=== PATIENT | male | born 1970 | race Hispanic/Latino ===

== ENCOUNTER 2017-06-25 09:45 | Outpatient (CLI) | payer BC ==
[2017-06-25 10:51] LABS: Bilirubin Negative (Negative); Blood, Urine Small (Negative); Clarity CLEAR (Clear); Glucose, Urine (Dipstick) Negative (Negative); Leukocyte Negative (Negative); Nitrite Negative (Negative); Protein, Urine (Dipstick) Negative (Neg-Trace)
[2017-06-25 10:52] LABS: Hemoglobin 14.4 g/dL (14.0-18.0); Mean Corpuscular HGB CONC 33.6 g/dL (32.0-36.0); Mean Corpuscular Hemoglobin 31.5 pg (27.0-31.0); Mean Corpuscular Volume 93.7 fl (80.0-94.0); Mean Platelet Volume 7.2 fL (7.4-10.4); Platelet Count 253 thou/uL (130-400); RBC Distribution Width 11.6 % (11.5-14.5); Red Blood Cell (RBC) Count 4.57 mill/uL (4.70-6.10); White Blood Cell (WBC) Count 7.1 thou/uL (4.8-10.8)
[2017-06-25 10:55] LABS: Bacteria/HPF None Seen HPF (None Seen); Hyaline Casts/LPF 0-3 HYALINE CAST LPF (0-3 Hyaline); Squamous Epithelial None Seen HPF (0-3); WBC/HPF 0-3 HPF (0-3)
[2017-06-25 10:58] LABS: PTT 28.1 SEC (22.9-36.1); Prothrombin Time 13.6 SEC (12.0-14.7)
[2017-06-25 11:14] LABS: Anion Gap 13 mmol/L (10-20); BUN (Urea Nitrogen) 15 mg/dL (8.9-20.6); Calc. Creatinine Clearance 0 mL/min (70-130); Calcium 9.6 mg/dL (7.8-10.44); Carbon Dioxide 25 mmol/L (22-29); Chloride 105 mmol/L (98-107); Estimated GFR-MDRD 87; Glucose 103 mg/dL (70-105); Potassium 4.4 mmol/L (3.5-5.1); Sodium 139 mmol/L (136-145)
== END 2017-06-25 09:46 | disposition home or self-care (01) ==
LOC: LABBT 09:45
PROVIDERS: ATTEND Urology
DX: Z01.812 Encounter for preprocedural laboratory examination (principal); R97.20 Elevated prostate specific antigen [PSA]
CPT/HCPCS: 80048; 81001; 85027; 85610; 85730; 87081; 87086; 93005; 93010

== ENCOUNTER 2017-07-14 06:40 | Day surgery (SDC) | payer BC ==
[2017-06-25 10:04] VITALS: BMI 35.4
[2017-07-14] MEDS ORDERED: Levofloxacin 500 mg/D5W 100 ml Premix Bag ONE (07:55)
[2017-07-14] MEDS ORDERED: cefTRIAXone\\ROCEPHIN 2 GM, Admixture Fee 1 EACH in Sodium Chloride 0.9% 100 ML IVPB SCH (08:15)
[2017-07-14] MEDS ORDERED: Midazolam HCl 2 mg/2 ml Vial ONE (08:46)
[2017-07-14] MEDS ORDERED: Fentanyl 100 MCG/2 ML VIAL ONE (09:24)
[2017-07-14] MEDS ORDERED: Phenazopyridine HCl 97.5 MG TABLET ONE (10:25)
--- NOTE | 2017-07-14 10:33 | OP ---
DATE OF PROCEDURE: 07/14/2017 PREOPERATIVE DIAGNOSES: 1. A 47-year-old male with elevated PSA of 4.4, unremarkable SALLY. 2. Newly appreciated microscopic hematuria. POSTOPERATIVE DIAGNOSES: 1. A 47-year-old male with elevated PSA of 4.4, unremarkable SALLY. 2. Newly appreciated microscopic hematuria. PROCEDURE: 1. Flexible cystoscopy. 2. Transrectal ultrasound biopsy, 12 core biopsy of the prostate. SURGEON: Milagro Elias D.O. ANESTHESIA: LMA. COMPLICATIONS: None apparent. DISPOSITION: Recovery room in stable condition. INDICATIONS FOR PROCEDURE AND HISTORY: Mr. Shea is a 47-year-old male, Serbian speaking, who presented with his for evaluation of elevated PSA of 4.4. Digital rectal exam is grossly unremarkable. Family history of prostate cancer in which his father underwent a radical prostatectomy at age 65. The patient has history of chronic alcohol use/abuse, anxiety, and requested a biopsy under anesthesia. As pre-biopsy labs demonstrated newly appreciated microscopic hematuria, the patient was counseled this morning regarding concomitant flexible cystoscopy. Advised regarding CT for complete hematuria workup at a later date. Risks and complications including, but not limited to, bleeding, pain, infection, urosepsis, vasovagal episode was reviewed with the patient in detail. We discussed options for local versus exam under anesthesia and he desired to proceed with exam under anesthesia due to significant anxiety. DESCRIPTION OF THE PROCEDURE: After an informed consent is signed, the patient is taken to the operating room, placed in a supine position with the genital area prepped and draped in the usual surgical sterile fashion. Bilateral JAY hose, SCDs, and broad-spectrum antibiotics were provided. A flexible cystoscope was passed which demonstrated unremarkable anterior and posterior urethra. Prostatic urethra demonstrated coapting lateral lobes with no significant obstructive component. No evidence of urethral stricture was found. Upon entering the bladder, there was clear urine. The ureteral orifices bilaterally are identified in normal orthotopic position approximately 6 mm from the bladder neck. There is no gross evidence of intravesical median lobe. Clear efflux of urine was noted. The bladder mucosa was inspected which demonstrated no evidence of bladder tumor, stone, trabeculation, or diverticulum. Bladder wash for cytology was obtained. At this time, the patient was then placed in left lateral decubitus position with all pressure points padded and protected. Transrectal ultrasound probe was placed with a condom catheter, measurement of the prostate was obtained demonstrating a urethral length of 4.6, width of 4.5, height of 3.0 cm, volume calculated to be 33.6 grams. Twelve core needle biopsy was performed in a systematic manner. The probe was then subsequently removed. He tolerated the procedure well and transported to the recovery room in stable condition. He is discharged with ciprofloxacin for 5 days, Colace p.r.n. He will follow up with me next Wednesday to review pathology. ANN MARIE
== END 2017-07-14 12:19 | disposition home or self-care (01) ==
LOC: SDC 06:40
PROVIDERS: ATTEND Urology
PROC: BV49ZZZ Ultrasonography of Prostate and Seminal Vesicles (ICD-10-PCS; principal; 2017-07-14)
PROC: 0TJB8ZZ Inspection of Bladder, Via Natural or Artificial Opening Endoscopic (ICD-10-PCS; principal; 2017-07-14)
PROC: 0VB07ZX Excision of Prostate, Via Natural or Artificial Opening, Diagnostic (ICD-10-PCS; principal; 2017-07-14)
DX: N42.89 Other specified disorders of prostate (principal); R97.20 Elevated prostate specific antigen [PSA]; E11.9 Type 2 diabetes mellitus without complications; F32.9 Major depressive disorder, single episode, unspecified; I10 Essential (primary) hypertension; E78.5 Hyperlipidemia, unspecified; H40.9 Unspecified glaucoma; M51.26 Other intervertebral disc displacement, lumbar region; R20.2 Paresthesia of skin; G47.33 Obstructive sleep apnea (adult) (pediatric); E73.9 Lactose intolerance, unspecified; S83.207A Unspecified tear of unspecified meniscus, current injury, left knee, initial encounter; F10.10 Alcohol abuse, uncomplicated; F17.290 Nicotine dependence, other tobacco product, uncomplicated; Z79.82 Long term (current) use of aspirin; Z79.84 Long term (current) use of oral hypoglycemic drugs; Z79.899 Other long term (current) drug therapy; Z99.89 Dependence on other enabling machines and devices; Z98.818 Other dental procedure status; Z80.42 Family history of malignant neoplasm of prostate
CPT/HCPCS: 88112; 88305; J0696; J1956; J2250; J3010; J7050

== ENCOUNTER 2017-08-11 08:25 | Outpatient (CLI) | payer BC ==
[2017-08-11] MEDS ORDERED: Iopamidol 370 76% 100 ML VIAL ONE (09:31)
--- NOTE | 2017-08-11 11:12 | CT ---
ABDOMEN CT WITH AND WITHOUT CONTRAST PELVIC CT WITH AND WITHOUT CONTRAST: History: Microhematuria, elevated PSA one month ago. Comparison: None. Technique: Abdomen and pelvic CT are performed with and without contrast. Coronal reformatted images are submitted for interpretation. FINDINGS: ABDOMEN CT: Chronic changes lung bases. Normal heart size. No pericardial effusion. Visualized aorta is of normal caliber. Intra and extrahepatic portal vein is patent. Diffuse hypoattenuation of the liver due to hepatic ольга atosis. Spleen, pancreas, and adrenal glands have appropriate enhancement. No mesenteric mass, lympha denopathy, free air or free fluid. No gastrohepatic, retrocrural or periportal lymphadenopathy. Limited evaluation of the alimentary canal due to lack of oral contrast. Gastric mucosa, duodenum and multiple normal caliber small bowel loops are noted. Normal ileocecal junction. Normal caliber appen emmett. Gas and fecal material in a nondistended, nondilated colon. Bilaterally, no hydronephrosis, lymphadenopathy or significant perinephric fat stranding. Bilaterally , ureters have a normal caliber. No hydroureter, fat stranding, or ureterolithiasis. Symmetric enhanc ement of the kidneys. Symmetric excretion into normal appearing intra and extrarenal collecting syste m. There is adequate contrast opacification without filling defect. PELVIC CT: No mass, lymphadenopathy, free air, or free fluid. There is contrast in the dependent portion of the urinary bladder. Bladder mucosa is grossly unremarkable. Mild prominence of the bladder mucosa likely due to inadequate distention. No lytic or blastic lesions in the osseous structures. IMPRESSION: 1. No evidence of obstructive uropathy. 2. Hepatic steatosis. POS: [facility]
== END 2017-08-11 08:26 | disposition home or self-care (01) ==
LOC: CT 08:25
PROVIDERS: ATTEND Urology
DX: R31.29 Other microscopic hematuria (principal); K76.0 Fatty (change of) liver, not elsewhere classified
CPT/HCPCS: 74178

== ENCOUNTER 2018-12-14 13:09 | Outpatient (CLI) | payer BC ==
--- NOTE | 2018-12-14 15:25 | CT ---
ABDOMEN AND PELVIC CT SCAN WITH AND WITHOUT IV CONTRAST: HISTORY: Hematuria. COMPARISON: 08/11/2017. FINDINGS: The lung bases are clear. Prominent fatty changes in the liver with numerous areas of fatty sparing. Pancreas, spleen, gallbladder, and adrenal glands are unremarkable. No renal calculus or evidence for acute obstruction. No solid or cystic renal mass. Normal-appearing appendix. Normal-appeari ng urinary bladder. Bilateral fat-containing inguinal hernias larger on the left side as well as a f at-containing umbilical hernia. No abscess or adenopathy or abnormal fluid collection within the abd omen or pelvis. No evidence for bowel obstruction. IMPRESSION: Fatty changes in the liver with some areas of fatty sparring. Bilateral inguinal and umbilical fat-c ontaining hernias. No evidence for renal calculus or obstruction or solid or cystic renal mass or other significant acute abnormality. POS: [facility]
== END 2018-12-14 13:10 | disposition home or self-care (01) ==
LOC: BICCT 13:09
PROVIDERS: ATTEND Urology
DX: R31.29 Other microscopic hematuria (principal); R35.0 Frequency of micturition; Z80.42 Family history of malignant neoplasm of prostate; R97.20 Elevated prostate specific antigen [PSA]; K42.9 Umbilical hernia without obstruction or gangrene; K40.90 Unilateral inguinal hernia, without obstruction or gangrene, not specified as recurrent
CPT/HCPCS: 74178

== ENCOUNTER 2019-01-11 14:18 | Outpatient (CLI) | payer BC ==
[2019-01-11 17:30] LABS: Hemoglobin 14.2 g/dL (14.0-18.0); Mean Corpuscular HGB CONC 34.2 g/dL (32.0-36.0); Mean Corpuscular Hemoglobin 31.4 pg (27.0-31.0); Mean Corpuscular Volume 91.8 fL (78.0-98.0); Mean Platelet Volume 7.4 fL (7.4-10.4); Platelet Count 230 thou/uL (130-400); RBC Distribution Width 11.7 % (11.5-14.5); Red Blood Cell (RBC) Count 4.51 mill/uL (4.70-6.10); White Blood Cell (WBC) Count 6.7 thou/uL (4.8-10.8)
[2019-01-11 17:33] LABS: Bacteria/HPF None Seen HPF (None Seen); Bilirubin Negative (Negative); Blood, Urine Negative (Negative); Clarity Clear (Clear); Glucose, Urine (Dipstick) Normal (Negative); Leukocyte Negative Leu/uL (Negative); Nitrite Negative (Negative); Protein, Urine (Dipstick) Negative (Neg-Trace); RBC/HPF 0-3 HPF (0-3); Squamous Epithelial 0-3 HPF (0-3); Urobilinogen Normal mg/dL (Less than 2); WBC/HPF 0-3 HPF (0-3)
[2019-01-11 17:36] LABS: PTT 25.6 SEC (22.9-36.1); Prothrombin Time 12.8 SEC (12.0-14.7)
[2019-01-11 17:56] LABS: Anion Gap 14 mmol/L (10-20); BUN (Urea Nitrogen) 20 mg/dL (8.9-20.6); Calc. Creatinine Clearance 0 mL/min (70-130); Calcium 10.1 mg/dL (7.8-10.44); Carbon Dioxide 22 mmol/L (22-29); Chloride 107 mmol/L (98-107); Estimated GFR-MDRD 83; Glucose 120 mg/dL (70-105); Potassium 4.2 mmol/L (3.5-5.1); Sodium 139 mmol/L (136-145)
--- NOTE | 2019-01-11 18:08 | RAD ---
EXAM: CHEST TWO VIEWS: 01/11/19 HISTORY: Preoperative evaluation. Heart size is within normal limits. The lungs are clear. No pneumonia, edema, pleural effusion or oth er acute process. IMPRESSION: No acute intrathoracic disease. POS: [facility]
== END 2019-01-11 14:19 | disposition home or self-care (01) ==
LOC: LABBT 14:18
PROVIDERS: ATTEND Urology
DX: Z01.818 Encounter for other preprocedural examination (principal); R97.20 Elevated prostate specific antigen [PSA]; E11.9 Type 2 diabetes mellitus without complications; F10.10 Alcohol abuse, uncomplicated; R31.29 Other microscopic hematuria; R80.0 Isolated proteinuria; R35.0 Frequency of micturition; K42.9 Umbilical hernia without obstruction or gangrene
CPT/HCPCS: 71046; 80048; 81001; 85027; 85610; 85730; 87086; 93005; 93010

== ENCOUNTER 2019-01-25 06:12 | Day surgery (SDC) | payer BC ==
[2019-01-24 11:24] VITALS: BMI 35.4
[2019-01-25] MEDS ORDERED: Levofloxacin 500 mg/D5W 100 ml Premix Bag ONE (07:07)
[2019-01-25] MEDS ORDERED: Sodium Chloride 0.9% 100 ML ONE (07:07)
[2019-01-25] MEDS ORDERED: cefTRIAXone\\ROCEPHIN 2 GM VIAL ONE (07:07)
[2019-01-25] MEDS ORDERED: Fentanyl 100 MCG/2 ML VIAL ONE (08:04)
--- NOTE | 2019-01-25 10:35 | OP ---
DATE OF PROCEDURE: 01/25/2019 PREOPERATIVE DIAGNOSES: A 48-year-old male with family history of prostate cancer, elevated PSA, status post prostate biopsy negative for malignancy. POSTOPERATIVE DIAGNOSES: A 48-year-old male with family history of prostate cancer, elevated PSA, status post prostate biopsy negative for malignancy. PROCEDURES PERFORMED: 1. Transrectal ultrasound. 2. Volume study. 3. Extended core prostate biopsy. 4. MRI fusion region of interest biopsy. ANESTHESIA: TIVA. COMPLICATIONS: None apparent. DISPOSITION: To recovery room in stable condition. SPECIMENS: Extended core prostate biopsy x18, 4 biopsies obtained from region of interest. INDICATIONS FOR PROCEDURE AND HISTORY: Mr. Shea is a 48-year-old male with family history of prostate cancer. He presented with PSA of 4.44, underwent prostate biopsy, negative for malignancy. On followup exam, SALLY was unremarkable; however, increased PSA to 6.9. MRI was obtained, which demonstrated no obvious enhancing lesion. There was a nonspecific small focus of decreased T2 signal without restricted diffusion in the peripheral zone. Differential diagnosis of prostatitis or fibrosis in this region. No obvious enhancing lesion was seen. He presents today for extended core prostate biopsy and fusion biopsy. Risks and complications and indications reviewed including, but not limited to, bleeding, pain, infection, injury to adjacent organs, urosepsis, prolonged bleeding requiring secondary procedure was reviewed with him in detail and all questions answered to his satisfaction. He desired to proceed. DESCRIPTION OF PROCEDURE: After an informed consent was signed, the patient was taken to the operating room, placed in supine position. TIVA anesthesia was administered. Bilateral JAY hose, bilateral SCDs, and broad-spectrum antibiotics were provided. At this time, a transrectal ultrasound probe was placed. A digital rectal exam prior to placing the probe demonstrated unremarkable SALLY. Prostate volume study was performed in a standard fashion, measuring length at 4.9, width at 4.5, height of 4.0 for a volume of 44 g. At this time, we then performed an MRI fusion of the area of interest. With this targeted approach, we obtained 4 specimens from this region uneventfully. Then, we subsequently proceeded to perform our 12 standard core prostate biopsy and added an extended core periurethral region of each region. He tolerated the procedure well and transported to the recovery room in stable condition. Total of 18 prostate biopsy was performed and 4 of the region of interest was performed in total. Indwelling Watson catheter was placed periprocedural, pink tinged urine was noted at the end of the procedure and subsequently removed. He will undergo voiding trial prior to discharge. He was discharged with ciprofloxacin for course of 7 days, I did provide him with Flomax #30 given extended core prostate biopsy. As a baseline, he has no significant obstructive urinary symptoms; however, we will provide periprocedural Flomax. Yolis mack.r.n. Appointment with me on 02/14 at 2:15. No aspirin or ibuprofen products advised for a minimum of 7-10 days. Job ID: [id number]
[2019-01-25] MEDS ORDERED: Phenazopyridine HCl 97.5 MG TABLET ONE (11:11)
== END 2019-01-25 12:17 | disposition home or self-care (01) ==
LOC: SDC 06:12
PROVIDERS: ATTEND Urology
PROC: 0VB03ZX Excision of Prostate, Percutaneous Approach, Diagnostic (ICD-10-PCS; principal; 2019-01-25)
DX: R97.20 Elevated prostate specific antigen [PSA] (principal); I10 Essential (primary) hypertension; E11.9 Type 2 diabetes mellitus without complications; F17.210 Nicotine dependence, cigarettes, uncomplicated; F41.8 Other specified anxiety disorders; F32.9 Major depressive disorder, single episode, unspecified; G47.33 Obstructive sleep apnea (adult) (pediatric); Z79.82 Long term (current) use of aspirin; Z79.84 Long term (current) use of oral hypoglycemic drugs; Z79.899 Other long term (current) drug therapy; Z99.89 Dependence on other enabling machines and devices
CPT/HCPCS: 88305; J0696; J1956; J3010; J3490

== ENCOUNTER 2019-03-16 16:30 | Inpatient (IN) | payer BC ==
[2019-03-21 15:14] LABS: Hemoglobin 13.2 g/dL (14.0-18.0); Mean Corpuscular HGB CONC 34.4 g/dL (32.0-36.0); Mean Corpuscular Hemoglobin 31.7 pg (27.0-31.0); Mean Corpuscular Volume 92.1 fL (78.0-98.0); Mean Platelet Volume 7.4 fL (7.4-10.4); Platelet Count 219 thou/uL (130-400); RBC Distribution Width 11.5 % (11.5-14.5); Red Blood Cell (RBC) Count 4.17 mill/uL (4.70-6.10); White Blood Cell (WBC) Count 6.1 thou/uL (4.8-10.8)
[2019-03-21 15:21] LABS: PTT 25.9 SEC (22.9-36.1); Prothrombin Time 13.2 SEC (12.0-14.7)
[2019-03-21 15:34] LABS: ALT (SGPT) 30 U/L (8-55); AST (SGOT) 22 U/L (5-34); Albumin 4.7 g/dL (3.5-5.0); Alkaline Phosphatase 44 U/L (40-110); Anion Gap 14 mmol/L (10-20); BUN (Urea Nitrogen) 19 mg/dL (8.9-20.6); Bilirubin, Total 0.5 mg/dL (0.2-1.2); Calc. Creatinine Clearance 0 mL/min (70-130); Carbon Dioxide 23 mmol/L (22-29); Chloride 105 mmol/L (98-107); Estimated GFR-MDRD 81; Globulin 2.4 g/dL (2.4-3.5); Glucose 138 mg/dL (70-105); Potassium 4.3 mmol/L (3.5-5.1); Protein, Total 7.1 g/dL (6.0-8.3); Sodium 138 mmol/L (136-145)
[2019-03-27] MEDS ORDERED: Levofloxacin 500 mg/D5W 100 ml Premix Bag ONE (06:24)
[2019-03-27] MEDS ORDERED: cefOXitin Sodium/Dextrose,Iso 1 GM in Premix Bag 50 BAG IVPB SCH (06:30)
[2019-03-27] MEDS ORDERED: Lidocaine 1% w/Epinephrine 1:100K 20 ML VIAL ONE (06:53)
[2019-03-27] MEDS ORDERED: Bupivacaine HCl 0.25%/Epi 0.0005/PF 10 ML VIAL FS ONE (06:53)
[2019-03-27] MEDS ORDERED: Dexamethasone 4 mg/ml Vial ONE (07:01)
[2019-03-27] MEDS ORDERED: Midazolam HCl 2 mg/2 ml Vial ONE (07:01)
[2019-03-27] MEDS ORDERED: Fentanyl 100 MCG/2 ML VIAL ONE ×4 (07:01→15:35)
[2019-03-27] MEDS ORDERED: cefOXitin 2 GM VIAL ONE ×2 (09:33→12:13)
[2019-03-27] MEDS ORDERED: Fentanyl 250 MCG/5 ML VIAL ONE (10:09)
[2019-03-27] MEDS ORDERED: Rocuronium Bromide 50 MG/5 ML VIAL ONE (12:10)
[2019-03-27] MEDS ORDERED: SUGAMMADEX SODIUM 200 MG/2 ML VIAL ONE (13:07)
[2019-03-27] MEDS ORDERED: Dextrose 5% in Water 1,000 ML IV PRN (14:02)
[2019-03-27] MEDS ORDERED: Dextrose 50% Abboject 50 ML SYRINGE SLOW IVP PRN (14:02)
[2019-03-27] MEDS ORDERED: Acetaminophen 500 MG TAB PO PRN (14:03)
[2019-03-27] MEDS ORDERED: Promethazine HCl 25 MG/ML VIAL IM PRN (14:03)
[2019-03-27] MEDS ORDERED: Ondansetron HCl/PF 4 MG/2 ML Vial IVP PRN (14:03)
[2019-03-27] MEDS ORDERED: diphenhydrAMINE 50 MG/ML VIAL IVP PRN (14:03)
[2019-03-27] MEDS ORDERED: Mag-Al 1200 mg/1200 mg/30 ML UDCUP PO PRN (14:03)
[2019-03-27] MEDS ORDERED: Promethazine HCl 25 MG/ML VIAL SLOW IVP PRN (14:03)
[2019-03-27] MEDS ORDERED: Acetaminophen 1,000 MG in Premix Bag 1 BAG IVPB SCH (14:15)
[2019-03-27 14:44] LABS: #Monocytes 0.6 thou/uL (0.11-0.59); #Neutrophils 10.5 thou/uL (1.40-6.50); %Basophils 0.1 % (0.0-1.0); %Eosinophils 0.2 % (0.0-10.0); %Lymphocytes 7.9 % (21.0-51.0); %Monocytes 4.7 % (0.0-10.0); %Neutrophils 87.2 % (42.0-75.0); Hemoglobin 13.6 g/dL (14.0-18.0); Mean Corpuscular HGB CONC 32.8 g/dL (32.0-36.0); Mean Corpuscular Hemoglobin 31.6 pg (27.0-31.0); Mean Corpuscular Volume 96.3 fL (78.0-98.0); Mean Platelet Volume 7.4 fL (7.4-10.4); Platelet Count 222 thou/uL (130-400); RBC Distribution Width 11.6 % (11.5-14.5); Red Blood Cell (RBC) Count 4.32 mill/uL (4.70-6.10)
[2019-03-27 15:05] LABS: Anion Gap 18 mmol/L (10-20); BUN (Urea Nitrogen) 18 mg/dL (8.9-20.6); Calc. Creatinine Clearance 101 mL/min (70-130); Calcium 8.4 mg/dL (7.8-10.44); Carbon Dioxide 19 mmol/L (22-29); Chloride 105 mmol/L (98-107); Estimated GFR-MDRD 53; Glucose 173 mg/dL (70-105); Potassium 5.9 mmol/L (3.5-5.1); Sodium 136 mmol/L (136-145)
[2019-03-27] MEDS ORDERED: Lactase 9,000 UNIT CHEWABLE TAB PO PRN (15:15)
[2019-03-27] MEDS ORDERED: hydrALAZINE 20 MG/ML VIAL SLOW IVP PRN ×2 (15:46)
[2019-03-27] MEDS ORDERED: Ondansetron PF 4 MG/2 ML Vial IVP PRN (15:46)
[2019-03-27] MEDS ORDERED: Rocuronium Bromide 10 MG/ML (10ML VIAL) ONE (15:54)
[2019-03-27] MEDS ORDERED: Bupivacaine HCl 0.5%/Epinephrine 1:200,000/PF 30 ml Vial ONE (15:54)
[2019-03-27] MEDS ORDERED: Vecuronium Bromide 20 MG VIAL ONE (15:54)
[2019-03-27] MEDS ORDERED: PHENYLEPHRINE-NS 100 MCG/ML 10 ML SYRINGE ONE (15:54)
[2019-03-27] MEDS ORDERED: Dexamethasone 20 MG/5 ML VIAL ONE (15:54)
[2019-03-27] MEDS ORDERED: Glycopyrrolate 0.2 MG/ML 5 ML SYRINGE ONE (15:54)
[2019-03-27] MEDS ORDERED: Ondansetron PF 4 MG/2 ML Vial ONE (15:54)
[2019-03-27] MEDS ORDERED: PROPOFOL 200 MG/20 ML VIAL ONE (15:54)
[2019-03-27 16:28] VITALS: BMI 35.4
[2019-03-27] MEDS: Insulin Regular 300 UNITS/3 ML VIAL SC PRN (17:00)
[2019-03-27] MEDS: cefOXitin 1.5 GM in Sodium Chloride 0.9% 100 ML IVPB SCH ×2 (17:00→23:43)
[2019-03-27] MEDS: Sodium Chloride 0.9% 1,000 ML IV SCH ×2 (17:01→22:27)
[2019-03-27] MEDS: HYDROcodone/Acetaminophen 10/325 mg Tablet PO PRN ×2 (18:12→22:25)
[2019-03-27] MEDS: Morphine 2 MG/ML SYRINGE SLOW IVP PRN (20:10)
[2019-03-27] MEDS: Docusate 100 MG CAP PO SCH (20:11)
--- NOTE | 2019-03-27 20:11 | OP ---
DATE OF PROCEDURE: 03/27/2019 PREOPERATIVE DIAGNOSIS: 1. Clinical T1c adenocarcinoma of the prostate, Bess score 3 + 3, 3 + 4. 2. Family history of prostate cancer. POSTOPERATIVE DIAGNOSIS: 1. Clinical T1c adenocarcinoma of the prostate, Bess score 3 + 3, 3 + 4. 2. Family history of prostate cancer. PROCEDURE PERFORMED: Robotic-assisted laparoscopic radical prostatectomy. PRODUCTION TESTER: Reji Stokes MD ANESTHESIA: General. COMPLICATIONS: None apparent. SPECIMEN: 1. Portions of the vasa bilaterally, SVs, prostate for permanent. 2. Apical nonspecific fibroadipose tissue sent for frozen: demonstrating fibroadipose tissue, a tiny fragment of benign prostatic tissue, negative for malignancy. INDICATIONS FOR PROCEDURE AND HISTORY: Mr. Shea is a pleasant 48-year-old male with family history of prostate cancer. He previously underwent a prostate biopsy, which was negative for malignancy. Due to elevated PSA and increased velocity of concern, he underwent MRI fusion biopsy. There were no obvious regions of interest, was read as a "scar." He underwent extended core prostate biopsy, with the scar on the MRI biopsied as well, demonstrating 5/12 cores positive with no perineural invasion. His metastatic workup is negative and presents today for robotic-assisted laparoscopic radical prostatectomy, possible conversion to open. Alternatives of the procedure including active surveillance , watchful waiting, various modality of radiation therapy as primary treatment were reviewed with him in detail. We also discussed possible conversion to open due to his body habitus. Offered to the patient both nerve-sparing and non-nerve- sparing, the patient requested [id number] to optimize his margin negative disease with full understanding that biochemical recurrence may occur, requiring adjuvant therapy or margin positive disease. Risks and complications of the procedure have been extensively discussed with the patient and family in detail on preoperative assessment and they desired to proceed with robotic prostatectomy. DESCRIPTION OF PROCEDURE: After appropriate identification of the patient, the patient was taken to the operating room after informed consent. General anesthesia was administered. The patient was placed in supine position. Then, all pressure points were then padded and protected. The patient was placed in steep Trendelenburg low lithotomy position, and prepped and draped in the usual surgical sterile fashion. We monitored his pulmonary pressures, which he tolerated. We attempted Veress @umbilicus however, it was somewhat suboptimal. Therefore, we did perform a cutdown for access pneumoperitoneum, incision was made infraumbilically with an 11 blade, cut down to the fascia, and a small peritoneotomy was made, and our camera port with balloon reservoir was placed through the cutdown site, and pneumoperitoneum was achieved with adequate pressure. Inspection of the bowel contents demonstrated no evidence of vascular or bowel injuries. The remainder of the ports were then placed under direct visualization with #1 arm is a 15 mm port, #2 and #3 arm on the left 8 mm port and 5 mm recovery assistant port on the right upper quadrant, an 11 mm port on the right, these were placed in the standard robotic fashion. The robot was then subsequently docked. There were no significant adhesions of concern. A small fat containing inguinal hernias were seen bilaterally that did not need to be treated. Rectum was then retracted cephalad, and a semi-circular incision was made about a cm on the anterior surface of the rectovesical pouch. Bilateral vas was identified, and dissection was performed with sharp and blunt dissection. As he requested [id number], we used both monopolar and bipolar cautery to sharply dissect the seminal vesicle and vas bilaterally. We divided the vas deferens bilaterally with monopolar scissors. Plane above Denonvilliers fascia developed toward the apex of the prostate, and the lateral pedicles were created. We did not aggressively developed the plane posteriorly, as it appeared to be somewhat adherent. Surgicel was placed in a dependent position of our dissection, and attention was then turned to the anterior surface of the abdominal wall. We then subsequently dropped the bladder by incising just lateral to the bilateral medial umbilical ligaments. The bladder was then dropped, dividing the loose regular tissue until the entire pubic arch could be visualized. We defatted the pubic arch in the pre-prostatic fat, so that we can visualize the endopelvic fascia cleanly bilaterally. The right endopelvic fascia was incised first using blunt and sharp dissection. Using bipolar and monopolar scissors, vessels obtaining good hemostasis. The bilateral endopelvic fascia was entered in similar fashion and dissected the levator muscles off the lateral aspect of the prostate. The puboprostatic ligament was then divided using monopolar and bipolar energy. Once the ligament was dropped, we then utilized the robotic Tri-Staple to divide the dorsal vein complex. With the dorsal vein divided, we then worked on our process of vesical junction. The bladder apron was dissected off the mid-prostate creating a thick bladder neck. We encountered the urethra and saw the prostatic urethra following toward the prostatic tissue, and this was sharply dissected and divided. The anterior aspect of the bladder neck was divided, visualizing a Watson, and the posterior lip was created. We did develop a thick bladder neck posteriorly, and we carried this plane down, meeting our posterior defect that we created through the posterior approach and subsequently delivered the seminal vesicles in the bilateral vasa through our defect posteriorly. The lateral pedicles were then worked on using sharp and blunt dissection. We utilized vessel sealer to divide the lateral pedicles to the mid-prostate. Toward the apex of the prostate, we sharped dissection, freeing the Denonvilliers' fascia and the rectum off the apex of the prostate. As he did have extensive biopsy, adhesion/ fusion of the tissue Apicaally that was sharply dissected off the prostate. The urethra was then dissected with sharp and blunt dissection. He did have some residual dorsal veins that were bleeding. Therefore, using 2-0 Vicryl on an SH needle, we over-sew the residual dorsal vein complex that was oozing. Subsequently, we were able to identify the urethra with sharp dissection dividing the urethra currently with an adequate stump. The apex of the prostate was then gently rotated and dividing the apex completely off the rectum without trauma. There appeared to be some fiber adipose tissue at the apex adherent to the rectum, and this was sharply dissected and divided and sent for frozen, which was read as fibroadipose tissue with tiny portions of benign prostatic tissue that was negative for malignancy. It appeared more fibroadipose than actual prostate tissue grossly. We inspected the rectal surface area, which demonstrated no obvious trauma. We filled the intraabdominal cavity with fluid and placed a soft 16-Sammarinese red rubber in the rectum and insufflated air, in which we saw no evidence of air leak. At this time, the wound was copiously irrigated. We worked on our anastomosis. A 2-0 V-Loc stitch was utilized to place a Shekhar stitch reapproximating the urethra nicely. Using similar 2-0 V-Loc stitch, we then performed our urethrovesical anastomosis with a final catheter that passed without significant issues tension-free. Anastomosis appeared to be tension-free and relatively watertight as irrigation demonstrated no obvious leak of concern. The wound was then copiously irrigated, and we placed a #18 circular drain in the dependent position behind the bladder. A Dionisio-Anil stitch and 2-0 Vicryl were utilized to close the fascia of our 15 mm, 11 mm robotic arm trocar sites. The rest of the fascia was closed of our 12-mm camera port infraumbilically with Vicryl 2-0 [id number]. Skin was closed with 4-0 Monocryl in a subcuticular fashion, and Dermabond was placed. All instruments were accounted for. He tolerated the procedure well. A final Watson catheter of 18-Sammarinese 10 mL insufflated to 15 mL of air demonstrated pink-tinged urine output, and he tolerated the procedure well and transported to the recovery room in stable condition. Job ID: [id number] [facility]
[2019-03-27] MEDS: Latanoprost 0.005% Ophth Soln 2.5 ml Bottle R EYE SCH (20:46)
[2019-03-27] MEDS: Trospium 20 MG TAB PO SCH (20:47)
[2019-03-27] MEDS: Brimonidine Tartrate 0.2% Ophth Soln 5 ml Bottle R EYE SCH (20:49)
[2019-03-27] MEDS: Zolpidem Tartrate 5 MG TAB PO PRN (23:46)
[2019-03-28 04:41] LABS: #Lymphocytes 1.8 thou/uL (1.20-3.40); #Monocytes 1.2 thou/uL (0.11-0.59); #Neutrophils 7.3 thou/uL (1.40-6.50); %Basophils 0.2 % (0.0-1.0); %Eosinophils 0.1 % (0.0-10.0); %Lymphocytes 17.4 % (21.0-51.0); %Monocytes 11.4 % (0.0-10.0); Hemoglobin 11.5 g/dL (14.0-18.0); Mean Corpuscular HGB CONC 33.4 g/dL (32.0-36.0); Mean Corpuscular Hemoglobin 31.1 pg (27.0-31.0); Mean Corpuscular Volume 93.1 fL (78.0-98.0); Mean Platelet Volume 7.4 fL (7.4-10.4); Platelet Count 184 thou/uL (130-400); RBC Distribution Width 11.6 % (11.5-14.5); Red Blood Cell (RBC) Count 3.69 mill/uL (4.70-6.10); White Blood Cell (WBC) Count 10.2 thou/uL (4.8-10.8)
[2019-03-28 05:09] LABS: Anion Gap 14 mmol/L (10-20); BUN (Urea Nitrogen) 13 mg/dL (8.9-20.6); Calc. Creatinine Clearance 148 mL/min (70-130); Carbon Dioxide 20 mmol/L (22-29); Chloride 106 mmol/L (98-107); Estimated GFR-MDRD 84; Glucose 140 mg/dL (70-105); Potassium 3.7 mmol/L (3.5-5.1); Sodium 136 mmol/L (136-145)
[2019-03-28] MEDS: cefOXitin 1.5 GM in Sodium Chloride 0.9% 100 ML IVPB SCH ×3 (05:55→22:11)
[2019-03-28] MEDS: HYDROcodone/Acetaminophen 10/325 mg Tablet PO PRN ×3 (05:56→18:17)
[2019-03-28] MEDS ORDERED: Bisacodyl 10 MG SUPP PR SCH (08:00)
--- NOTE | 2019-03-28 08:25 | PRG ---
DATE OF SERVICE: 03/28/2019 SUBJECTIVE: The patient is sleeping, has some abdominal discomfort, however, appears to be sleeping comfortably. OBJECTIVE: VITAL SIGNS: Stable. T-max of 99.9, T-current is 98.5, pulse 95, respiratory rate 16, oxygen saturation 92%, and blood pressure 120/76. I's and O's; 2860 in and 1135 of concentrated yellow urine. BRANDIN is 110, serosanguineous over the last 12-hour shift. He is positive 1.7 L. GENERAL: The patient appears to be in no acute distress. HEART: Regular rate. LUNGS: Clear. ABDOMEN: Soft. Bowel sounds are present, however, distended with no rigidity. No rebound. Incisions are clean, dry, and intact. EXTREMITIES: No cyanosis, clubbing, or edema. GENITOURINARY: Watson catheter adequately secured. LABORATORY DATA: White count of 10, hemoglobin 11.5, and platelet 184. BMP this morning is unremarkable with creatinine of 0.96. Blood sugars have been running in 130s to 170s on sliding-scale insulin. IMPRESSION AND PLAN: Mr. Shea is a 48-year-old male with family history of prostate cancer, clinical T1c Bess score 3 + 3, 3 + 4, postop day #1, status post robotic-assisted laparoscopic radical prostatectomy. patient does have bowel sounds, however, his appetite is somewhat poor. patient to be out of bed aggressively, bilateral JAY hose and SCDs are to remain in place. Dulcolax x1 provided by myself. Informed the patient regarding importance of out of bed, aggressive ambulation to aid in passage of gas. will Hep-Lock IV. PT walking program order initiated. will remain on clear liquids for now. Job ID: [id number] [facility]
[2019-03-28] MEDS: Trospium 20 MG TAB PO SCH ×2 (08:48→22:11)
[2019-03-28] MEDS: Docusate 100 MG CAP PO SCH ×2 (08:48→20:08)
[2019-03-28] MEDS: Losartan 25 MG TAB PO SCH (08:48)
[2019-03-28] MEDS: Alogliptin 25 MG TAB PO SCH (08:49)
[2019-03-28] MEDS: Atorvastatin Calcium 40 MG TAB PO SCH (08:49)
[2019-03-28] MEDS: Pioglitazone HCl 15 MG TAB PO SCH (08:49)
[2019-03-28] MEDS: Timolol 0.5% Ophth Soln 5 ml Bottle R EYE SCH (08:51)
[2019-03-28] MEDS: Morphine 4 MG/ML VIAL SLOW IVP PRN ×2 (09:10→19:40)
[2019-03-28] MEDS: Insulin Regular 300 UNITS/3 ML VIAL SC PRN ×2 (12:15→15:36)
[2019-03-28] MEDS: Morphine 2 MG/ML SYRINGE SLOW IVP PRN (15:18)
[2019-03-28] MEDS: Latanoprost 0.005% Ophth Soln 2.5 ml Bottle R EYE SCH (20:08)
[2019-03-28] MEDS: Sodium Chloride 0.9% 1,000 ML IV SCH (21:02)
[2019-03-28] MEDS: Zolpidem Tartrate 5 MG TAB PO PRN (23:23)
[2019-03-29] MEDS: HYDROcodone/Acetaminophen 10/325 mg Tablet PO PRN ×3 (02:41→19:18)
[2019-03-29 04:26] LABS: #Eosinphils 0.1 thou/uL (0.0-0.7); #Monocytes 0.9 thou/uL (0.11-0.59); %Basophils 0.3 % (0.0-1.0); %Eosinophils 0.8 % (0.0-10.0); %Monocytes 9.2 % (0.0-10.0); %Neutrophils 69.7 % (42.0-75.0); Mean Corpuscular HGB CONC 33.7 g/dL (32.0-36.0); Mean Corpuscular Hemoglobin 31.7 pg (27.0-31.0); Mean Corpuscular Volume 93.8 fL (78.0-98.0); Mean Platelet Volume 7.5 fL (7.4-10.4); Platelet Count 186 thou/uL (130-400); RBC Distribution Width 11.6 % (11.5-14.5); Red Blood Cell (RBC) Count 3.79 mill/uL (4.70-6.10)
[2019-03-29 04:43] LABS: Anion Gap 15 mmol/L (10-20); BUN (Urea Nitrogen) 10 mg/dL (8.9-20.6); Calc. Creatinine Clearance 160 mL/min (70-130); Calcium 8.4 mg/dL (7.8-10.44); Carbon Dioxide 20 mmol/L (22-29); Chloride 105 mmol/L (98-107); Estimated GFR-MDRD Greater than 90; Glucose 149 mg/dL (70-105); Potassium 3.8 mmol/L (3.5-5.1); Sodium 136 mmol/L (136-145)
[2019-03-29] MEDS: Insulin Regular 300 UNITS/3 ML VIAL SC PRN (06:46)
[2019-03-29] MEDS: cefOXitin 1.5 GM in Sodium Chloride 0.9% 100 ML IVPB SCH ×3 (06:46→22:53)
--- NOTE | 2019-03-29 07:38 | PRG ---
DATE OF SERVICE: 03/29/2019 SUBJECTIVE: The patient is resting. He had some chicken broth and mashed potatoes last night, and had no nausea, however, states that he is not that hungry. He has passed flatus, had some mucoid bowel movement. OBJECTIVE: VITAL SIGNS: T-max of 100.1, T-current is 99.2, pulse 97, respiratory rate 16, oxygen saturation 92, and blood pressure 131/85. I's and O's; 1320 in, urine output 1125, BRANDIN 160 over 24 hours. Had one bowel movement. LUNGS: Clear. ABDOMEN: Distended. Bowel sounds are present and active. No rigidity. No rebound. EXTREMITIES: No cyanosis, clubbing, or edema. GENITOURINARY: Urine output demonstrates concentrated yellow urine. PERTINENT LABORATORY DATA: White count 10, hemoglobin stable at 12, and platelet 186. Creatinine 0.89, which is his baseline. Pathology pending. IMPRESSION AND PLAN: Mr. Shea is a pleasant 48-year-old male with family history of prostate cancer, clinical T1c [place] score 3 + 3, 3 + 4, postop day #2, status post robotic-assisted laparoscopic radical prostatectomy. The patient has good bowel sounds, and is passing flatus, however, his appetite is somewhat poor. I again discussed with the patient regarding aggressive ambulation out of bed, we will initiate Toradol 30 mg IV push every 6 hours to minimize narcotic use. I will watch the patient for likely another 24 hours as I would like the patient to have more oral intake prior to discharge. Job ID: [id number] [facility]
[2019-03-29] MEDS: Sodium Chloride 0.9% 1,000 ML IV SCH ×3 (08:40→19:21)
[2019-03-29] MEDS: Ketorolac Tromethamine 30 MG/ML VIAL IVP SCH ×3 (08:40→20:53)
[2019-03-29] MEDS: Alogliptin 25 MG TAB PO SCH (08:44)
[2019-03-29] MEDS: Atorvastatin Calcium 40 MG TAB PO SCH (08:44)
[2019-03-29] MEDS: Docusate 100 MG CAP PO SCH ×2 (08:44→20:54)
[2019-03-29] MEDS: Pioglitazone HCl 15 MG TAB PO SCH (08:44)
[2019-03-29] MEDS: Brimonidine Tartrate 0.2% Ophth Soln 5 ml Bottle R EYE SCH (08:45)
[2019-03-29] MEDS: Timolol 0.5% Ophth Soln 5 ml Bottle R EYE SCH (08:54)
[2019-03-29] MEDS: Trospium 20 MG TAB PO SCH ×2 (11:00→20:54)
[2019-03-29] MEDS: Latanoprost 0.005% Ophth Soln 2.5 ml Bottle R EYE SCH (20:54)
[2019-03-30] MEDS: Ketorolac Tromethamine 30 MG/ML VIAL IVP SCH ×3 (01:24→14:47)
[2019-03-30 04:51] LABS: #Eosinphils 0.2 thou/uL (0.0-0.7); #Lymphocytes 2.4 thou/uL (1.20-3.40); #Monocytes 0.7 thou/uL (0.11-0.59); #Neutrophils 3.8 thou/uL (1.40-6.50); %Basophils 0.3 % (0.0-1.0); %Lymphocytes 33.8 % (21.0-51.0); %Monocytes 9.6 % (0.0-10.0); %Neutrophils 53.3 % (42.0-75.0); Hemoglobin 10.8 g/dL (14.0-18.0); Mean Corpuscular HGB CONC 33.9 g/dL (32.0-36.0); Mean Corpuscular Hemoglobin 31.5 pg (27.0-31.0); Mean Corpuscular Volume 92.7 fL (78.0-98.0); Mean Platelet Volume 7.1 fL (7.4-10.4); Platelet Count 168 thou/uL (130-400); RBC Distribution Width 11.5 % (11.5-14.5); Red Blood Cell (RBC) Count 3.45 mill/uL (4.70-6.10); White Blood Cell (WBC) Count 7.2 thou/uL (4.8-10.8)
[2019-03-30 05:13] LABS: Anion Gap 12 mmol/L (10-20); BUN (Urea Nitrogen) 10 mg/dL (8.9-20.6); Calc. Creatinine Clearance 165 mL/min (70-130); Carbon Dioxide 24 mmol/L (22-29); Chloride 106 mmol/L (98-107); Estimated GFR-MDRD Greater than 90; Glucose 117 mg/dL (70-105); Potassium 3.5 mmol/L (3.5-5.1); Sodium 138 mmol/L (136-145)
[2019-03-30] MEDS: cefOXitin 1.5 GM in Sodium Chloride 0.9% 100 ML IVPB SCH (06:29)
--- NOTE | 2019-03-30 07:30 | PRG ---
DATE OF SERVICE: 03/30/2019 SUBJECTIVE: The patient doing well, he has been walking aggressively, has had multiple bowel movements, tolerating diet. OBJECTIVE: VITAL SIGNS: T-max of 99.4, T-current is 98.3, pulse 77, blood pressure 153/83, and 96% on room air. I's and O's; 3800 in and 1900 of yellow urine. BRANDIN is 140 over the last 24 hours shift. It is mostly serous. LUNGS: Clear. ABDOMEN: Soft, mildly distended. Bowel sounds are active. His incisions are clean, dry, and intact. Urine output is clear yellow. EXTREMITIES: No cyanosis, clubbing, or edema. LABORATORY DATA: White count 7, hemoglobin 10.8, platelet count 168. Renal function stable. Creatinine 0.86. BRANDIN creatinine yesterday is 0.86 consistent with peritoneal fluid. Pathology is pending. IMPRESSION AND PLAN: Mr. Shea is a 48-year-old male with family history of prostate cancer, [place] score 3+ 3, 3+4, clinical T1c prostate cancer, postoperative day #3, status post robotic-assisted laparoscopic prostatectomy. The patient's pain is much better controlled with Toradol around the clock, he has been tolerating regular diet, his labs are stable. As he is in positive fluid balance, I will Hep-Lock his IV, DC his antibiotics. I informed the patient that he can be discharged this afternoon, however, relates that he has lack of family support due to 's work and requests to stay another day. this is reasonable given he had major surgery. I do anticipate patient should be able to discharge tomor Pathology pending. Continue to be aggressively out of bed. will discontinue BRANDIN prior to discharge tomorrow. Job ID: [id number] [facility]
[2019-03-30] MEDS: Pioglitazone HCl 15 MG TAB PO SCH (08:56)
[2019-03-30] MEDS: Docusate 100 MG CAP PO SCH ×2 (08:56→20:24)
[2019-03-30] MEDS: Alogliptin 25 MG TAB PO SCH (08:56)
[2019-03-30] MEDS: Atorvastatin Calcium 40 MG TAB PO SCH (08:58)
[2019-03-30] MEDS: Trospium 20 MG TAB PO SCH ×2 (08:58→20:24)
[2019-03-30] MEDS: Brimonidine Tartrate 0.2% Ophth Soln 5 ml Bottle R EYE SCH (08:58)
[2019-03-30] MEDS: Timolol 0.5% Ophth Soln 5 ml Bottle R EYE SCH (09:00)
[2019-03-30] MEDS: Losartan 25 MG TAB PO SCH (09:08)
[2019-03-30] MEDS ORDERED: traMADol HCl 50 MG TAB PO PRN (12:50)
[2019-03-30] MEDS: Latanoprost 0.005% Ophth Soln 2.5 ml Bottle R EYE SCH (20:23)
[2019-03-31 06:03] LABS: #Eosinphils 0.2 thou/uL (0.0-0.7); #Lymphocytes 1.8 thou/uL (1.20-3.40); #Monocytes 0.5 thou/uL (0.11-0.59); #Neutrophils 3.4 thou/uL (1.40-6.50); %Basophils 0.6 % (0.0-1.0); %Eosinophils 3.8 % (0.0-10.0); %Monocytes 8.8 % (0.0-10.0); %Neutrophils 56.7 % (42.0-75.0); Hemoglobin 10.9 g/dL (14.0-18.0); Mean Corpuscular HGB CONC 34.5 g/dL (32.0-36.0); Mean Corpuscular Hemoglobin 31.8 pg (27.0-31.0); Mean Corpuscular Volume 92.2 fL (78.0-98.0); Mean Platelet Volume 7.1 fL (7.4-10.4); Platelet Count 190 thou/uL (130-400); RBC Distribution Width 11.7 % (11.5-14.5); Red Blood Cell (RBC) Count 3.43 mill/uL (4.70-6.10)
[2019-03-31 06:52] LABS: Chloride 110 mmol/L (98-107)
[2019-03-31 06:53] LABS: Calcium 8.5 mg/dL (7.8-10.44); Glucose 131 mg/dL (70-105); Potassium 3.8 mmol/L (3.5-5.1); Sodium 141 mmol/L (136-145)
[2019-03-31 06:55] LABS: Anion Gap 12 mmol/L (10-20); Carbon Dioxide 23 mmol/L (22-29)
[2019-03-31 06:57] LABS: Calc. Creatinine Clearance 182 mL/min (70-130); Estimated GFR-MDRD Greater than 90
[2019-03-31 06:58] LABS: BUN (Urea Nitrogen) 8 mg/dL (8.9-20.6)
--- NOTE | 2019-03-31 08:19 | DIS ---
DATE OF ADMISSION: 03/27/2019 DATE OF DISCHARGE: 03/31/2019 PRIMARY CARE PHYSICIAN: Dr. Munguia. ADMITTING DIAGNOSIS: Clinical T1c prostate cancer. DISCHARGE DIAGNOSIS: Status post robotic-assisted laparoscopic radical prostatectomy, pathologic stage T2, Bess score 3 + 7, margin negative disease. BRIEF HOSPITAL COURSE: Mr. Shea is a pleasant 48-year-old male with strong family history of prostate cancer, workup demonstrated prostate cancer and he underwent robotic-assisted laparoscopic radical prostatectomy uneventfully. The patient's blood sugars were monitored as he is diabetic, he did well postop. He had bowel movement. On postop day #1, he has been ambulating aggressively. He was clinically stable to be discharged yesterday, as his oral consumption did improve, however , due to family support, requested to stay one more day. He is looking well this morning. He is not on any narcotics overnight. Labs stable. Vital signs stable. BRANDIN creatinine demonstrates labs consistent with peritoneal fluid, it was removed this morning on morning rounds. DISCHARGE MEDICATIONS: The patient will continue his home medications. No aspirin or ibuprofen products advised until followup appointment. He will be discharged with course of antibiotic therapy to start prior to catheter removal. Lenox 5/ 325 , #30. Colace p.r.n. DISCHARGE INSTRUCTIONS: followup will be on April 11 at 8:00 a.m. for catheter removal. Instructions regarding no heavy lifting, strenuous activity, straddling, stair climbing advised. Instructions regarding Watson catheter provided for patient and . Job ID: [id number] MTDD
[2019-03-31] MEDS: Atorvastatin Calcium 40 MG TAB PO SCH (09:20)
[2019-03-31] MEDS: Alogliptin 25 MG TAB PO SCH (09:20)
[2019-03-31] MEDS: Pioglitazone HCl 15 MG TAB PO SCH (09:20)
[2019-03-31] MEDS: Losartan 25 MG TAB PO SCH (09:20)
[2019-03-31] MEDS: Docusate 100 MG CAP PO SCH (09:20)
[2019-03-31] MEDS: Trospium 20 MG TAB PO SCH (09:20)
[2019-03-31] MEDS: Timolol 0.5% Ophth Soln 5 ml Bottle R EYE SCH (09:21)
[2019-03-31] MEDS: Brimonidine Tartrate 0.2% Ophth Soln 5 ml Bottle R EYE SCH (09:21)
[2019-03-31 12:18] VITALS: BP 151/92; TEMP 99
== END 2019-03-31 14:52 | disposition home or self-care (01) | DRG 708 ==
LOC: SURG A 03-27 06:05 → EDSTATUS 03-27 13:01 → SURG A 03-27 14:39
PROVIDERS: ADMIT Urology; ATTEND Urology
PROC: 0VT04ZZ Resection of Prostate, Percutaneous Endoscopic Approach (ICD-10-PCS; principal; 2019-03-27)
PROC: 0VT34ZZ Resection of Bilateral Seminal Vesicles, Percutaneous Endoscopic Approach (ICD-10-PCS; 2019-03-27)
PROC: 0VBQ4ZZ Excision of Bilateral Vas Deferens, Percutaneous Endoscopic Approach (ICD-10-PCS; 2019-03-27)
PROC: 8E0W4CZ Robotic Assisted Procedure of Trunk Region, Percutaneous Endoscopic Approach (ICD-10-PCS; 2019-03-27)
DX: C61 Malignant neoplasm of prostate (principal); E11.9 Type 2 diabetes mellitus without complications; F32.9 Major depressive disorder, single episode, unspecified; F41.9 Anxiety disorder, unspecified; E78.5 Hyperlipidemia, unspecified; I10 Essential (primary) hypertension; H40.9 Unspecified glaucoma; G47.33 Obstructive sleep apnea (adult) (pediatric); E66.9 Obesity, unspecified; F10.10 Alcohol abuse, uncomplicated; Z79.84 Long term (current) use of oral hypoglycemic drugs; Z79.899 Other long term (current) drug therapy; Z80.42 Family history of malignant neoplasm of prostate; Z68.35 Body mass index [BMI] 35.0-35.9, adult
CPT/HCPCS: 36415; 36416; 80048; 80053; 82570; 85025; 85027; 85610; 85730; 86850; 86900; 86901; 88305; 88309; 88331; 90471; 90732; G0009; J0360; J0670; J0694; J1100; J1815; J1885; J1956; J2250; J2270; J2405; J2704; J3010; J3490

== ENCOUNTER 2019-03-21 14:38 | Outpatient (CLI) | payer BC ==
[2019-03-21 16:30] LABS: Bilirubin Negative (Negative); Blood, Urine Negative (Negative); Glucose, Urine (Dipstick) Negative (Negative); Leukocyte Negative (Negative); Nitrite Negative (Negative); Protein, Urine (Dipstick) Negative (Neg-Trace); Urobilinogen 0.2 mg/dL (Less than 2)
[2019-03-21 16:31] LABS: Clarity Clear (Clear)
[2019-03-21 16:32] LABS: Bacteria/HPF None Seen HPF (None Seen); RBC/HPF 0-3 HPF (0-3); Squamous Epithelial None Seen HPF (0-3); WBC/HPF None Seen HPF (0-3)
--- NOTE | 2019-03-22 16:50 | EKG ---
Test Reason : Blood Pressure : / mmHG Vent. Rate : 075 BPM Atrial Rate : 075 BPM P-R Int : 144 ms QRS Dur : 090 ms QT Int : 372 ms P-R-T Axes : 033 012 012 degrees QTc Int : 415 ms Normal sinus rhythm Nonspecific T wave abnormality Abnormal ECG Confirmed by SAUNDRA YARBROUGH ([id number]) on 03/22/2019 4:50:19 PM Referred By: BAIRON Confirmed By:SAUNDRA YARBROUGH
== END 2019-03-21 14:39 | disposition home or self-care (01) ==
LOC: LABBT 14:38
PROVIDERS: ATTEND Urology
DX: Z01.818 Encounter for other preprocedural examination (principal)
CPT/HCPCS: 81001; 87086; 93005; 93010

== ENCOUNTER 2019-04-06 14:35 | Outpatient (CLI) | payer BC ==
--- NOTE | 2019-04-06 15:46 | ULT ---
RIGHT LOWER EXTREMITY VENOUS DOPPLER WITH SPECTRAL ANALYSIS AND COLOR FLOW EVALUATION: 04/06/19 HISTORY: Right lower leg edema/pain. FINDINGS: Kendall scale, color flow, Doppler evaluation, with spectral analysis of the right lower extremity venou s structures is performed with 2D imaging. The right lower extremity common femoral, superficial femo ral, popliteal, posterior tibial, most proximal greater saphenous and profunda femoral veins are imag ed. There is normal lumen compressibility, flow, and augmentation in the visualized deep venous structure s of the right lower extremity. There are several serpiginous tubular anechoic structures seen within the soft tissues of the right lower extremity with images labeled at the level of the mid lower righ t leg. Some of the tubular structures demonstrate absence or diminished flow suggesting thrombosis of superficial veins, in the correct clinical scenario, findings could be related to superficial thromb ophlebitis. IMPRESSION: 1. No evidence of a DVT involving the visualized deep venous structures right lower extremity. 2. Absence of flow within superficial venous structures of the right lower extremity. Findings c ould be related to superficial thrombophlebitis in the correct clinical scenario. POS: [facility]
== END 2019-04-06 14:36 | disposition home or self-care (01) ==
LOC: ULT 14:35
PROVIDERS: ATTEND Family Medicine
DX: R60.0 Localized edema (principal)

== ENCOUNTER 2019-05-03 20:30 | Outpatient (CLI) | payer BC | END 2019-05-03 20:31 | disposition home or self-care (01) | LOC: SLEEPLAB 20:30 | PROVIDERS: ATTEND Family Medicine | DX: G47.33 Obstructive sleep apnea (adult) (pediatric) (principal) | CPT/HCPCS: 95811 ==